=== PATIENT | male | born 1950 | race Caucasian/White ===

== ENCOUNTER 2016-08-17 06:26 | Day surgery (SDC) | payer OTHER ==
[~2016-08-17] VITALS: Ht 180.3 cm; Wt 90.7 kg
[2016-08-17 07:21] VITALS: BP 153/77
[2016-08-17 10:06] VITALS: BP 128/74
== END 2016-08-17 10:50 | disposition home or self-care (01) ==
LOC: DS 06:26 → GI 09:30 → OR 09:30 → DS 10:50
PROVIDERS: Internal Medicine
PROC: 0DB68ZX Excision of Stomach, Via Natural or Artificial Opening Endoscopic, Diagnostic (ICD-10-PCS; principal; 2016-08-17 09:30)
PROC: 0DJD8ZZ Inspection of Lower Intestinal Tract, Via Natural or Artificial Opening Endoscopic (ICD-10-PCS; 2016-08-17 09:30)
DX: K25.9 Gastric ulcer, unspecified as acute or chronic, without hemorrhage or perforation (principal); K22.10 Ulcer of esophagus without bleeding; I10 Essential (primary) hypertension; I25.10 Atherosclerotic heart disease of native coronary artery without angina pectoris; R63.4 Abnormal weight loss; E78.00 Pure hypercholesterolemia, unspecified; K64.4 Residual hemorrhoidal skin tags; K57.30 Diverticulosis of large intestine without perforation or abscess without bleeding; Z12.11 Encounter for screening for malignant neoplasm of colon
CPT/HCPCS: 43235; 45378; J1200; J1610; J2250; J2310; J3010; J3490

== ENCOUNTER 2016-10-04 08:31 | Inpatient (IN) | payer OTHER ==
[~2016-10-04] VITALS: Ht 180.3 cm; Wt 89.8 kg
[2016-10-04 09:32] LABS: CALCIUM 9.1 mg/dL (8.5-10.1); CARBON DIOXIDE 26.4 mmol/L (21-32); CHLORIDE SERUM 98 mmol/L (98-107); CREATININE SERUM 0.9 mg/dL (0.7-1.3); GFR1 > 60 mL/min; GLUCOSE SERUM 235 mg/dL (74-106); POTASSIUM SERUM 4.7 mmol/L (3.5-5.1); SODIUM SERUM 130 mmol/L (136-145)
[2016-10-04 09:37] LABS: ALKALINE PHOSPHATASE 387 U/L (46-116); ALT/SGPT 43 U/L (16-63); AST/SGOT 43 U/L (15-37); BILIRUBIN TOTAL 0.79 mg/dL (0.20-1.00); LIPASE 119 IU/L (73-393); TOTAL PROTEIN, SERUM 7.9 g/dL (6.4-8.2)
[2016-10-04 09:52] LABS: ALBUMIN 3.2 g/dL (3.4-5.0)
[2016-10-04 09:54] LABS: BASOPHIL % 0.4 % (0-2); PLATELET COUNT 284 x10^3mcL (130-400); RED CELL DISTRIBUTION WIDTH 14.5 % (11.5-14.5)
[2016-10-04 10:57] LABS: UA SPECIFIC GRAVITY >=1.030 (1.005-1.035); microscopic required? YES; urine erythrocyte NEGATIVE (NEGATIVE)
[2016-10-04] MEDS ORDERED: PRA40 PO (11:19)
[2016-10-04] MEDS ORDERED: NOVOLOG FLEX100 U/M1 SC (11:19)
[2016-10-04] MEDS ORDERED: RAMIPRIL2.5 MG PO (11:20)
[2016-10-04] MEDS ORDERED: LASIX20 MG PO (11:20)
[2016-10-04] MEDS ORDERED: RANEXA1000 M2 PO (11:21)
[2016-10-04] MEDS ORDERED: NITROSTAT0.4 MG SL (11:22)
[2016-10-04] MEDS ORDERED: PROTONIX TR40 M1 PO (11:23)
[2016-10-04] MEDS ORDERED: ASPIR 8181 MG PO (11:23)
[2016-10-04] MEDS ORDERED: XARELTO10 M1 PO (11:24)
[2016-10-04] MEDS ORDERED: AMARYL4 MG PO (11:24)
[2016-10-04] MEDS ORDERED: METFORMIN HCL1000 MG PO (11:25)
[2016-10-04] MEDS ORDERED: ALDACTONE25 MG PO (11:25)
[2016-10-04] MEDS ORDERED: PLA75 PO (11:25)
[2016-10-04] MEDS ORDERED: TYLENOL WITH CO1 TA2 PO (11:25)
[2016-10-04] MEDS ORDERED: CARVEDILOL25 M1 PO (11:26)
[2016-10-04 13:36] VITALS: BP 126/73
[2016-10-04 14:10] LABS: MAGNESIUM 1.8 mg/dL (1.8-2.4); PHOSPHOROUS 3.4 mg/dL (2.5-4.9)
[2016-10-04 14:21] LABS: T3 TOTAL 0.87 ng/mL
[2016-10-04 14:30] LABS: FREE T4 1.3 ng/dL (0.76-1.46); FREE THYROXINE INDEX 2.9 ug/dL (1.4-4.5)
[2016-10-04 18:53] LABS: AMPHETAMINE QUAL UR NONE DETECTED (NEG <=1000)
[2016-10-04 21:48] VITALS: BP 106/62
[2016-10-05 05:55] VITALS: BP 117/71
[2016-10-05 06:45] LABS: CALCIUM 8.9 mg/dL (8.5-10.1); CARBON DIOXIDE 27.1 mmol/L (21-32); CHLORIDE SERUM 100 mmol/L (98-107); CHOLESTEROL 135 mg/dL (<200); CHOLESTEROL/HDL RATIO 3.6; CREATININE SERUM 0.8 mg/dL (0.7-1.3); GFR1 > 60 mL/min; GLUCOSE SERUM 155 mg/dL (74-106); HDL CHOLESTEROL 37 mg/dL (40-60); MAGNESIUM 1.6 mg/dL (1.8-2.4); PHOSPHOROUS 4.4 mg/dL (2.5-4.9); POTASSIUM SERUM 4.5 mmol/L (3.5-5.1); SODIUM SERUM 135 mmol/L (136-145); TRIGLYCERIDES 113 mg/dL (<150)
[2016-10-05 07:03] LABS: BASOPHIL % 0.4 % (0-2); PLATELET COUNT 241 x10^3mcL (130-400); RED CELL DISTRIBUTION WIDTH 14.5 % (11.5-14.5)
[2016-10-05 10:00] VITALS: BP 124/74
[2016-10-05 14:26] VITALS: BP 100/54
[2016-10-05 14:29] VITALS: BP 102/58
[2016-10-05 18:53] VITALS: BP 102/58
[2016-10-05 21:56] VITALS: BP 117/72
[2016-10-06 06:30] VITALS: BP 114/63
[2016-10-06 09:00] VITALS: BP 111/66
[2016-10-06 14:18] VITALS: BP 114/64
[2016-10-06 18:06] VITALS: BP 128/65
[2016-10-06 20:34] VITALS: BP 109/62
[2016-10-07 05:54] VITALS: BP 118/67
[2016-10-07 08:31] LABS: ALPHA FETOPROTEIN TUMOR MARKER 2.3 ng/mL (0.0-8.3)
[2016-10-07 10:55] VITALS: BP 113/67
[2016-10-07 13:47] VITALS: BP 101/65
[2016-10-07 14:03] VITALS: BP 96/57
[2016-10-07 18:25] VITALS: BP 116/67
[2016-10-07 20:34] VITALS: BP 104/61
[2016-10-08 05:16] VITALS: BP 110/67
[2016-10-08 05:25] VITALS: BP 110/67
[2016-10-08 09:54] VITALS: BP 118/64
[2016-10-08] MEDS ORDERED: ALT2.5 PO (11:03)
[2016-10-08 11:44] VITALS: BP 118/64
[2016-10-08] MEDS ORDERED: NOVOLOG FLEX100 U/M1 SC (13:38)
[2016-10-08] MEDS ORDERED: NORCO1 TA2 PO (13:41)
[2016-10-08] MEDS ORDERED: COLACE100 MG PO (13:42)
[2016-10-08 13:47] VITALS: BP 99/53
== END 2016-10-08 15:39 | disposition home or self-care (01) | DRG 73 ==
LOC: ED 08:31 → DU 11:43
PROVIDERS: Emergency Medicine; Internal Medicine; ADMIT Family Medicine
DX: E11.43 Type 2 diabetes mellitus with diabetic autonomic (poly)neuropathy (principal); I50.43 Acute on chronic combined systolic (congestive) and diastolic (congestive) heart failure; K56.7 Ileus, unspecified; N39.0 Urinary tract infection, site not specified; D68.69 Other thrombophilia; J90 Pleural effusion, not elsewhere classified; E44.0 Moderate protein-calorie malnutrition; J98.11 Atelectasis; K31.84 Gastroparesis; E11.51 Type 2 diabetes mellitus with diabetic peripheral angiopathy without gangrene; E11.65 Type 2 diabetes mellitus with hyperglycemia; E83.42 Hypomagnesemia; E02 Subclinical iodine-deficiency hypothyroidism; D64.9 Anemia, unspecified; J84.10 Pulmonary fibrosis, unspecified; N20.0 Calculus of kidney; I25.10 Atherosclerotic heart disease of native coronary artery without angina pectoris; I10 Essential (primary) hypertension; E78.5 Hyperlipidemia, unspecified; Z79.4 Long term (current) use of insulin; Z79.82 Long term (current) use of aspirin; Z68.27 Body mass index [BMI] 27.0-27.9, adult; Z79.84 Long term (current) use of oral hypoglycemic drugs; Z95.5 Presence of coronary angioplasty implant and graft
CPT/HCPCS: 82962; 83880; 84439; 87491; 87591; J1644; J1940; J2270; J2405; J2765; J3475; J3490; J7030; J7042; Q0092; Q9967